=== PATIENT | female | born 1970 | race Caucasian/White ===

== ENCOUNTER 2022-03-20 07:28 | Day surgery (SDC) | payer OTHER ==
[~2022-03-20] VITALS: Ht 157.5 cm; Wt 62.1 kg
[2022-03-20] MEDS ORDERED: fentaNYL citrate 0.05 MG/ML VIAL ONE (08:17)
[2022-03-20] MEDS ORDERED: MIDAZOLAM 2 MG/2 ML VIAL ONE (08:17)
[2022-03-20] MEDS ORDERED: diphenhydrAMINE 50 MG/ML VIAL ONE (08:17)
[2022-03-20] MEDS: MIDAZOLAM 2 MG/2 ML VIAL IVP ONE (08:50)
[2022-03-20] MEDS: fentaNYL citrate 0.05 MG/ML VIAL IVP ONE (08:51)
[2022-03-20] MEDS: LIDOCAINE 2% 100 MG/5 ML UJET TP ONE (08:53)
== END 2022-03-20 10:01 | disposition home or self-care (01) ==
LOC: MDS 07:28 → MMU 07:28 → MDS 10:01
PROVIDERS: ATTEND Internal Medicine Gastroenterology
DX: D50.9 Iron deficiency anemia, unspecified (principal); Z80.0 Family history of malignant neoplasm of digestive organs; Z98.82 Breast implant status; Z20.822 Contact with and (suspected) exposure to COVID-19; Z79.899 Other long term (current) drug therapy
CPT/HCPCS: 45378; 87426; J2250; J3010; J1200